=== PATIENT | male | born 1965 ===

== ENCOUNTER 2024-12-22 11:31 | Outpatient (OUT) | payer SELFPAY ==
[2024-12-22 12:19] LABS: Erythrocyte Sedimentation Rate 15 mm/hr (<=20)
[2024-12-22 12:47] LABS: C Reactive Protein <0.50 mg/dL (<=0.50); Uric Acid 5.3 mg/dL (3.5-7.2)
== END 2024-12-22 11:32 | disposition home or self-care (01) ==
LOC: LAB 11:40
PROVIDERS: PCP Family Medicine; Visit Provider Physician Assistant
DX: L03.115 Cellulitis of right lower limb (principal); M25.561 Pain in right knee; M25.461 Effusion, right knee
CPT/HCPCS: 36415; 84550; 85652; 86140